=== PATIENT | male | born 1980 | race Caucasian/White ===

== ENCOUNTER 2017-05-16 18:26 | Emergency (ER) | payer SELFPAY ==
[~2017-05-16] VITALS: Ht 167.6 cm; Wt 65.0 kg
[2017-05-16 21:00] LABS: BASOPHILS % 0.5 % (0.0-2.0); HEMATOCRIT. 47.2 % (42.0-52.0); LYMPHOCYTES % 18.7 % (20.0-50.0); MEAN CORPUSCULAR HEMOGLOBIN 27.7 pg (28.0-32.0); MEAN CORPUSCULAR VOLUME 81.6 fL (80.0-94.0); MEAN PLATELET VOLUME 7.9 fl (7.4-10.4); NEUTROPHILS % 74.8 % (40.0-76.0); PLATELET 345 x1000/uL (130-400); RED BLOOD CELL COUNT 5.78 mill/uL (4.7-6.1); RED CELL DISTRIBUTION WIDTH 14.4 % (11.6-14.6)
[2017-05-16 21:02] LABS: CHLORIDE 92 mEq/L (98-107)
[2017-05-16 21:15] LABS: ETHANOL BLOOD 333 mg/dL
[2017-05-16] MEDS ORDERED: DIPHENHYDRAMINE 50MG CAPSULE PO STA (22:24)
[2017-05-16] MEDS ORDERED: LORAZEPAM 2MG/ML CPJ IV STA (22:24)
[2017-05-16] MEDS ORDERED: LORAZEPAM 1MG TABLET PO ONE (22:30)
[2017-05-16] MEDS ORDERED: ONDANSETRON HCL 4MG TABLET PO ONE (23:00)
[2017-05-17] MEDS ORDERED: ONDANSETRON 4MG ODT PO ONE (00:30)
[2017-05-17 02:20] VITALS: BP 131/84
== END 2017-05-17 02:50 | disposition home or self-care (01) ==
LOC: ER 18:29
DX: F10.129 Alcohol abuse with intoxication, unspecified (principal); Y90.8 Blood alcohol level of 240 mg/100 ml or more; D72.829 Elevated white blood cell count, unspecified
CPT/HCPCS: 36415; 80053; 85025; 99284; G0482; Q0162; Q0163

== ENCOUNTER 2019-11-26 18:10 | Emergency (ER) | payer SELFPAY ==
[~2019-11-26] VITALS: Ht 167.6 cm; Wt 64.0 kg
[2019-11-26] MEDS ORDERED: FOLIC ACID 1 MG, THIAMINE HCL 100 MG, MVI, ADULT NO.1 10 ML in DEXTROSE 5% WATER 1,000 ML IV ONE ×4 (19:15)
[2019-11-26] MEDS ORDERED: ONDANSETRON HCL 4MG/2ML INJ IV ONE (19:15)
[2019-11-26 19:20] LABS: BASOPHILS % 0.5 % (0.0-2.0); CHLORIDE 100 mEq/L (98-107); HEMATOCRIT. 40.1 % (42.0-52.0); HEMOGLOBIN. 12.7 g/dL (14.0-18.0); LYMPHOCYTES % 24.7 % (20.0-50.0); MEAN CORPUSCULAR HEMOGLOBIN 21.5 pg (28.0-32.0); MEAN PLATELET VOLUME 8.8 fl (7.4-10.4); MONOCYTES % 5.7 % (2.0-8.0); NEUTROPHILS % 69.1 % (40.0-76.0); PLATELET 308 x1000/uL (130-400); RED CELL DISTRIBUTION WIDTH 25.7 % (11.6-14.6)
[2019-11-26 19:49] LABS: ETHANOL BLOOD 375 mg/dL
[2019-11-26 20:20] LABS: PLATELET ESTIMATE NORMAL
[2019-11-26] MEDS ORDERED: LORAZEPAM 2MG/ML CPJ IV ONE (21:15)
[2019-11-26 22:55] LABS: CLARITY URINE CLEAR (CLEAR); COLOR URINE YELLOW (YELLOW); KETONES URINE NEGATIVE (NEGATIVE); LEUKOCYTE ESTERASE URINE NEGATIVE (NEGATIVE); NITRITE URINE NEGATIVE (NEGATIVE); OCCULT BLOOD URINE 2+ (NEGATIVE); PROTEIN URINE 2+ (NEGATIVE); SPECIFIC GRAVITY URINE 1.023 (1.005-1.030)
[2019-11-26 23:07] LABS: *AMPHETAMINES SCREEN URINE NEGATIVE (NEGATIVE); *BARBITURATES SCREEN URINE NEGATIVE (NEGATIVE); CANNABINOID URINE SCREEN NEGATIVE (NEGATIVE); OPIATES URINE SCREEN NEGATIVE (NEGATIVE); PHENCYCLIDINE URINE SCREEN NEGATIVE (NEGATIVE)
[2019-11-26 23:08] LABS: *BENZODIAZEPINES SCREEN URINE NEGATIVE (NEGATIVE); METHADONE URINE SCREEN NEGATIVE (NEGATIVE)
[2019-11-26 23:20] LABS: *COCAINE SCREEN URINE NEGATIVE (NEGATIVE)
[2019-11-26 23:30] VITALS: BP 131/75
== END 2019-11-27 | disposition home or self-care (01) ==
LOC: ER 18:10
DX: G92 Toxic encephalopathy (principal); T51.0X1A Toxic effect of ethanol, accidental (unintentional), initial encounter; Y92.89 Other specified places as the place of occurrence of the external cause
CPT/HCPCS: 36415; 70450; 80053; 80305; 80307; 80320; 80329; 81003; 85025; 96365; 96375; 99284; J2060; J2405; J3411; J3490; J7070; G0480